=== PATIENT | male | born 1970 | race African-American/Black ===

== ENCOUNTER 2017-05-15 10:54 | Emergency (ER) | payer OTHER ==
[2017-05-15 11:35] VITALS: BP 139/93
[2017-05-15] MEDS ORDERED: Ibuprofen TAB* 400 MG PO ONE (11:44)
--- NOTE | 2017-05-15 11:44 | UC ---
Hand/Wrist HPI - HPI Summary HPI Summary: complaint of of hurting his right middle finger was unloading sheets from a dryer and his finger bent all the way back to his hand constant aching pain that started in middle finger and radites into his hand and wrist can bend his finger hasn't taken any medication for apin also has a growth on the back of his finger that started 3-4 months ago- tried a corn remover medication without relief - History Of Current Complaint Chief Complaint: UCUpperExtremity Stated Complaint: RIGHT RING FINGER INJURY WC Hx Obtained From: Patient - Allergies/Home Medications Allergies/Adverse Reactions: Allergies Allergy/AdvReac Type Severity Reaction Status Date / Time Penicillins [PCN] Allergy Rash Verified 05/15/17 11:31 PMH/Surg Hx/FS Hx/Imm Hx Previously Healthy: Yes Respiratory History: Asthma - Surgical History Surgical History: Yes Surgery Procedure, Year, and Place: fibroid removal left foot w/ graft from left abdomen 2005 - Family History Known Family History: Negative: Cardiac Disease, Hypertension, Diabetes - Social History Occupation: Employed Full-time Lives: With Family Alcohol Use: None Substance Use Type: None Smoking Status (MU): Never Smoked Tobacco Household Exposure Type: Cigarettes Review of Systems Constitutional: Negative Skin: Negative Eyes: Negative ENT: Negative Respiratory: Negative Cardiovascular: Negative Gastrointestinal: Negative Genitourinary: Negative Motor: Negative Neurovascular: Negative Musculoskeletal: Other: - right middle finger pain Neurological: Negative Psychological: Negative All Other Systems Reviewed And Are Negative: Yes Physical Exam Triage Information Reviewed: Yes Appearance: No Pain Distress, Well-Nourished Vital Signs: Initial Vital Signs Temp 98.8 F 05/15/17 11:31 Pulse 89 05/15/17 11:31 Resp 18 05/15/17 11:31 BP 139/93 05/15/17 11:31 Pulse Ox 99 05/15/17 11:31 Vital Signs Reviewed: Yes Eyes: Positive: Conjunctiva Clear ENT: Positive: Pharynx normal Neck: Positive: No Lymphadenopathy Respiratory: Positive: Lungs clear, Normal breath sounds, No respiratory distress, No accessory muscle use Cardiovascular: Positive: RRR, No Murmur, Pulses Normal Abdomen Description: Positive: Nontender, Soft Bowel Sounds: Positive: Present Musculoskeletal: Positive: Other: - RUE-hand- tenderness in 3rd metacrapal and throughpout middle finger- full ROM of middle finger, No anatomical snuff box tenderness; Full ROM in DIP, PIP, MCP, & carpal joints & with supination and pronation Neurological: Positive: Alert Psychological Exam: Normal Skin: Positive: Other - right middle finger with wart over PIP joint Hand/Wrist Course/Dx - Differential Dx/Diagnosis Differential Diagnosis/HQI/PQRI: Contusion, Fracture, Other - wart Provider Diagnoses: wart , right hand sprain,right middle finger sprain Discharge - Discharge Plan Condition: Stable Disposition: HOME Prescriptions: Naproxen TAB* [Naprosyn 375 mg TAB*] 375 mg PO BID #20 tab Patient Education Materials: Common Wart (ED), Hand Sprain (ED), RICE Therapy ( ED) Forms: *Work Release Referrals: No Primary Care Phys,NOPCP [Primary Care Provider] - [facility] [Outside] Additional Instructions: Increase fluids and rest Take naproxen for pain Please review your discharge instructions. If your symptoms do not improve please call your primary care provider or return to urgent care.
--- NOTE | 2017-05-15 12:02 | RAD ---
HISTORY: Right middle finger trauma, COMPARISONS: None VIEWS: 4, Frontal, lateral, and oblique views of the right hand FINDINGS: BONE DENSITY: Normal. BONES: There is no displaced fracture. JOINTS: There is no arthropathy. ALIGNMENT: There is no dislocation. SOFT TISSUES: Unremarkable. OTHER FINDINGS: None. IMPRESSION: NO ACUTE OSSEOUS INJURY. IF SYMPTOMS PERSIST, RECOMMEND REPEAT IMAGING.
== END 2017-05-15 12:40 | disposition home or self-care (01) ==
LOC: UCCORT 10:54
DX: S63.91XA Sprain of unspecified part of right wrist and hand, initial encounter (principal); S63.612A Unspecified sprain of right middle finger, initial encounter; X50.1XXA Overexertion from prolonged static or awkward postures, initial encounter; Y93.E2 Activity, laundry; Y92.9 Unspecified place or not applicable; Y99.0 Civilian activity done for income or pay; B07.9 Viral wart, unspecified; J45.909 Unspecified asthma, uncomplicated; Z88.0 Allergy status to penicillin; Z77.22 Contact with and (suspected) exposure to environmental tobacco smoke (acute) (chronic)
CPT/HCPCS: 99212; A9270-GY; G0463

== ENCOUNTER → 2019-06-15 11:41 | Emergency (ER) | payer SELFPAY | END | disposition home or self-care (01) | LOC: OHCORT 11:41 → UCCORT 11:41 | DX: Z02.1 Encounter for pre-employment examination (principal) ==